=== PATIENT | male | born 1990 | race African-American/Black ===

== ENCOUNTER 2018-11-14 11:38 | Emergency (ER) | payer SELFPAY ==
[2018-11-14] MEDS ORDERED: Ibuprofen 200 MG TAB ONE (11:59)
[2018-11-14] MEDS ORDERED: Acetaminophen/Codeine 30-300mg Tablet ONE (11:59)
== END 2018-11-14 12:10 | disposition home or self-care (01) ==
LOC: NAV ERS 11:38
DX: K03.81 Cracked tooth (principal); F17.210 Nicotine dependence, cigarettes, uncomplicated
CPT/HCPCS: 99282

== ENCOUNTER 2018-11-23 04:36 | Emergency (ER) | payer SELFPAY ==
[2018-11-23] MEDS ORDERED: Ketorolac Tromethamine 30 MG/ML VIAL ONE (05:24)
[2018-11-23] MEDS ORDERED: Metoclopramide HCl 10 MG/2 ML VIAL ONE (05:24)
[2018-11-23] MEDS ORDERED: Sodium Chloride 0.9% 1,000 ML ONE (05:24)
[2018-11-23] MEDS ORDERED: Acetaminophen 500 MG TAB ONE (05:24)
[2018-11-23] MEDS ORDERED: diphenhydrAMINE 50 MG/ML VIAL ONE (05:24)
[2018-11-23 05:28] LABS: #Basophils 0.1 thou/uL (0.0-0.2); #Lymphocytes 1.7 thou/uL (1.20-3.40); #Monocytes 0.3 thou/uL (0.11-0.59); #Neutrophils 4.1 thou/uL (1.40-6.50); %Basophils 1.4 % (0.0-1.0); %Eosinophils 0.7 % (0.0-10.0); %Lymphocytes 26.6 % (21.0-51.0); %Monocytes 5.4 % (0.0-10.0); %Neutrophils 65.9 % (42.0-75.0); Hemoglobin 13.8 g/dL (14.0-18.0); Mean Corpuscular HGB CONC 31.7 g/dL (32.0-36.0); Mean Corpuscular Hemoglobin 28.1 pg (27.0-31.0); Mean Corpuscular Volume 88.6 fL (78.0-98.0); Mean Platelet Volume 6.5 fL (7.4-10.4); Platelet Count 287 thou/uL (130-400); RBC Distribution Width 10.6 % (11.5-14.5); Red Blood Cell (RBC) Count 4.89 mill/uL (4.70-6.10); White Blood Cell (WBC) Count 6.2 thou/uL (4.8-10.8)
[2018-11-23 05:39] LABS: Anion Gap 14 mmol/L (10-20); BUN (Urea Nitrogen) 10 mg/dL (8.9-20.6); Calc. Creatinine Clearance 0 mL/min (70-130); Calcium 9.5 mg/dL (7.8-10.44); Carbon Dioxide 24 mmol/L (22-29); Chloride 104 mmol/L (98-107); Estimated GFR-MDRD 68; Glucose 127 mg/dL (70-105); Potassium 3.7 mmol/L (3.5-5.1); Sodium 138 mmol/L (136-145)
[2018-11-23 06:21] LABS: Amphetamine Detected (NotDetected); Barbiturates Screen Not Detected (NotDetected); Benzodiazepine Screen Not Detected (NotDetected); Cocaine Metabolite Screen Not Detected (NotDetected); Medtox Control Line Valid? VALID (VALID); Methadone Not Detected (NotDetected); Methamphetamine Detected (NotDetected); Opiate Screen Not Detected (NotDetected); Oxycodone Screen Not Detected (NotDetected); Phencyclidine (PCP) Detected (NotDetected); THC/Cannabinoid Screen Not Detected (NotDetected); Tricyclic Screen Not Detected (NotDetected)
--- NOTE | 2018-11-23 07:39 | CT ---
CT OF THE BRAIN WITHOUT CONTRAST: INDICATION: History of headache and tooth pain. COMPARISON: None. FINDINGS: No acute infarct, hemorrhage, or hydrocephalus is present. The septum pellucidum and third ventricle are midline. Mastoid air cells and paranasal sinuses are clear. The skull is intact. IMPRESSION: No acute intracranial abnormality. POS: BH
== END 2018-11-23 07:30 | disposition home or self-care (01) ==
LOC: NAV ERS 04:36
DX: K02.9 Dental caries, unspecified (principal); R51 Headache; F15.10 Other stimulant abuse, uncomplicated; F16.10 Hallucinogen abuse, uncomplicated; F17.210 Nicotine dependence, cigarettes, uncomplicated
CPT/HCPCS: 70450; 80048; 80306; 85025; 94760; 96365; 96375; J1200; J1885; J2765; J7050

== ENCOUNTER 2019-09-06 23:42 | Emergency (ER) | payer SELFPAY ==
[~2019-09-06 23:42] MED LIST: Iopamidol 370 76% 100 ML VIAL ONE
[2019-09-07 00:20] LABS: #Basophils 0.2 thou/uL (0.0-0.2); #Neutrophils 10.2 thou/uL (1.40-6.50); %Basophils 1.8 % (0.0-1.0); %Eosinophils 0.1 % (0.0-10.0); %Lymphocytes 15.6 % (21.0-51.0); %Neutrophils 75.5 % (42.0-75.0); Hemoglobin 14.7 g/dL (14.0-18.0); Hypochromia SLIGHT = 6-15 cells (100X) (0-5/hpf); MDiff Complete? YES; Mean Corpuscular HGB CONC 29.9 g/dL (32.0-36.0); Mean Corpuscular Hemoglobin 27.7 pg (27.0-31.0); Mean Corpuscular Volume 92.8 fL (78.0-98.0); Platelet Count 278 thou/uL (130-400); Platelet Morphology Comment Appears Adequate; RBC Distribution Width 11.9 % (11.5-14.5); Red Blood Cell (RBC) Count 5.29 mill/uL (4.70-6.10); White Blood Cell (WBC) Count 13.5 thou/uL (4.8-10.8)
[2019-09-07 00:26] LABS: Acetaminophen Less than 6.0 mcg/mL (10.0-30.0); Alcohol 69 mg/dL (Less than 10); Salicylate Less than 8.0 mg/dL (15.0-30.0)
[2019-09-07 00:29] LABS: ALT (SGPT) 39 U/L (8-55); AST (SGOT) 36 U/L (5-34); Albumin 4.6 g/dL (3.5-5.0); Alkaline Phosphatase 85 U/L (40-110); Anion Gap 23 mmol/L (10-20); BUN (Urea Nitrogen) 17 mg/dL (8.9-20.6); Bilirubin, Total 0.5 mg/dL (0.2-1.2); CK (CPK) 367 U/L (30-200); Calc. Creatinine Clearance 0 mL/min (70-130); Calcium 9.2 mg/dL (7.8-10.44); Carbon Dioxide 18 mmol/L (22-29); Chloride 101 mmol/L (98-107); Estimated GFR-MDRD 55; Globulin 3.5 g/dL (2.4-3.5); Glucose 66 mg/dL (70-105); Potassium 3.9 mmol/L (3.5-5.1); Protein, Total 8.1 g/dL (6.0-8.3); Sodium 138 mmol/L (136-145)
[2019-09-07 01:19] LABS: Bilirubin Negative (Negative); Blood, Urine Negative (Negative); Clarity Clear (Clear); Glucose, Urine (Dipstick) Negative (Negative); Leukocyte Negative (Negative); Nitrite Negative (Negative); Protein, Urine (Dipstick) Negative (Neg-Trace); Urobilinogen 0.2 mg/dL (Less than 2)
[2019-09-07 01:28] LABS: Amphetamine Detected (NotDetected); Benzodiazepine Screen Not Detected (NotDetected); Cocaine Metabolite Screen Not Detected (NotDetected); Methamphetamine Detected (NotDetected); Opiate Screen Not Detected (NotDetected); Phencyclidine (PCP) Detected (NotDetected); THC/Cannabinoid Screen Detected (NotDetected)
[2019-09-07 01:29] LABS: Barbiturates Screen Not Detected (NotDetected); Medtox Control Line Valid? VALID (VALID); Methadone Not Detected (NotDetected); Oxycodone Screen Not Detected (NotDetected); Tricyclic Screen Not Detected (NotDetected)
[2019-09-07] MEDS ORDERED: Lidocaine 1% (PF) 30 ML VIAL ONE (01:40)
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
== END 2019-09-07 02:00 | disposition home or self-care (01) ==
LOC: NAV ERS 23:42
DX: S31.010A Laceration without foreign body of lower back and pelvis without penetration into retroperitoneum, initial encounter (principal); E86.0 Dehydration; R00.0 Tachycardia, unspecified; W45.8XXA Other foreign body or object entering through skin, initial encounter
CPT/HCPCS: 12001; 36415; 70450; 71260; 72125; 74177; 80053; 80306; 80307; 81003; 82550; 85025; 93005; 96360; J2001; Q9967

== ENCOUNTER 2024-11-17 20:11 | Emergency (ER) | payer SELFPAY | END 2024-11-17 21:39 | LOC: NAV ERS 20:11 → EEVIPCON 20:11 → NAV ERS 21:39 | DX: F43.0 Acute stress reaction (principal); R29.700 NIHSS score 0; F17.210 Nicotine dependence, cigarettes, uncomplicated | CPT/HCPCS: 93005; 99284 ==